=== PATIENT | male | born 1965 | race Caucasian/White ===

== ENCOUNTER 2017-04-26 09:06 | Day surgery (SDC) | payer MEDICARE, MEDICAID ==
[2017-04-25 13:43] VITALS: BMI 22.1
[2017-04-26] MEDS ORDERED: Ketamine 50 MG/ML VIAL ONE (10:32)
[2017-04-26] MEDS ORDERED: Midazolam HCl 2 mg/2 ml Vial ONE (10:32)
--- NOTE | 2017-04-26 12:24 | OP ---
DATE OF PROCEDURE: 04/26/2017 PROCEDURE: Colonoscopy. PREOPERATIVE DIAGNOSIS: Family history of colon cancer in his mother. OPERATIVE NOTE: Informed consent was obtained. The patient was sedated with total intravenous anest hesia. The rectal exam was performed and was normal. The colonoscope was advanced to the cecum wher e the ileocecal valve and appendiceal orifice were clearly identified. The preparation quality was a dequate. The colonic mucosa had melanosis coli throughout. The mucosa was otherwise normal without polyps. Retroflexed views in the rectum were normal. IMPRESSION: 1. Melanosis coli. 2. Otherwise normal colonoscopy. RECOMMENDATIONS: Repeat colon cancer screening in 5 years.
[2017-04-26] MEDS ORDERED: Lidocaine 1% PF 5 ML VIAL ONE (13:13)
== END 2017-04-26 12:20 | disposition home or self-care (01) ==
LOC: SDC 09:06
PROVIDERS: ATTEND Internal Medicine Gastroenterology
PROC: 0DJD8ZZ Inspection of Lower Intestinal Tract, Via Natural or Artificial Opening Endoscopic (ICD-10-PCS; principal; 2017-04-26)
DX: Z12.11 Encounter for screening for malignant neoplasm of colon (principal); K63.89 Other specified diseases of intestine; Q90.9 Down syndrome, unspecified; F79 Unspecified intellectual disabilities; H91.92 Unspecified hearing loss, left ear; M48.02 Spinal stenosis, cervical region; G40.909 Epilepsy, unspecified, not intractable, without status epilepticus; Z98.890 Other specified postprocedural states; Z80.0 Family history of malignant neoplasm of digestive organs; Z82.49 Family history of ischemic heart disease and other diseases of the circulatory system; Z88.8 Allergy status to other drugs, medicaments and biological substances; Z88.1 Allergy status to other antibiotic agents
CPT/HCPCS: J2250